=== PATIENT | female | born 1985 | race African-American/Black ===

== ENCOUNTER 2017-04-11 08:10 | Emergency (ER) | payer MEDICAID ==
[~2017-04-11] VITALS: Ht 162.6 cm; Wt 85.0 kg
[~2017-04-11 08:10] MED LIST: CHLO50 PO; RANI150 PO; REGL10TA5 PO
[2017-04-11 08:12] VITALS: BP 131/77; PULSE 87; RESP 16; TEMP 98.2; O2SAT 98
[2017-04-11] MEDS ORDERED: ZOFR4TAB3 SL (08:44)
[2017-04-11] MEDS ORDERED: LOMO2.5T PO (08:44)
[2017-04-11] MEDS ORDERED: DIPHENOXYLATE/ATROPINE 2.5 MG/0.025 MG TAB PO ONE (08:45)
[2017-04-11] MEDS ORDERED: ONDANSETRON ODT 4 MG TAB PO ONE (08:45)
--- NOTE | 2017-04-11 08:45 | PD ---
HPI Chief Complaint: GI Complaint Time Seen by Provider: 08:34 Travel History International Travel<30 days: No Contact w/Intl Traveler<30days: No Traveled to known affect area: No History of Present Illness HPI 31-year-old female arrives complaining of nausea vomiting and diarrhea for about 1 day. She woke up yesterday morning with watery diarrhea. She vomited once yesterday and twice last night. She describes a fluttering sensation and a crampy type pain in the upper abdomen/epigastrium and supraumbilical distribution. She denies fever. Last food prior to symptoms was steak and shake. Yesterday she was able to eat a submarine sandwich. Later that evening she ate chicken however vomited overnight. She reports a week ago successful treatment with Diflucan for a yeast infection. She denies urinary frequency/ dysuria. Emesis and diarrhea are nonbloody. PFSH Past Medical History Anemia: Yes Arthritis: No Asthma: No Autoimmune Disease: No Blood Disorders: Yes Anxiety: No Depression: No Heart Rhythm Problems: No Cancer: No Cardiovascular Problems: No High Cholesterol: No Chemotherapy: No Chest Pain: No Congestive Heart Failure: No COPD: No Cerebrovascular Accident: No Diabetes: No Diminished Hearing: No Endocrine: No Genitourinary: No Immune Disorder: No Kidney Stones: No Musculoskeletal: No Neurologic: No Psychiatric: No Reproductive: No Respiratory: No Immunizations Current: No Migraines: No Radiation Therapy: No Renal Failure: No Seizures: No Sickle Cell Disease: No Sleep Apnea: No Thyroid Disease: No ?: Not : 4 Para: 1 Miscarriage: 0 : 2 Past Surgical History Abdominal Surgery: No AICD: No Arteriovenous Shunt: No Cardiac Surgery: No Section: Yes (X 1) Ear Surgery: No Endocrine Surgery: No Eye Surgery: No Genitourinary Surgery: No Gynecologic Surgery: Yes ( ABOVE) Insulin Pump: No Joint Replacement: No Oral Surgery: No Pacemaker: No Thoracic Surgery: No Other Surgery: Yes Social History Alcohol Use: No Tobacco Use: No Substance Use: No Allergies-Medications (Allergen,Severity, Reaction): Coded Allergies: No Known Allergies (Verified , 04/11/17) Reported Meds & Prescriptions Reported Meds & Active Scripts Active Zantac 150 Mg Tab (Ranitidine HCl) 150 Mg Tab 150 Mg PO Q12 Thorazine 50 Mg Tab (Chlorpromazine Hcl) 50 Mg Tab 50 Mg PO Q8 PRN Reglan (Metoclopramide HCl) 10 Mg Tab 10 Mg PO TIDACHS Review of Systems Except as stated in HPI: all other systems reviewed are Neg General / Constitutional: No: Fever Gastrointestinal: Positive: Nausea, Vomiting, Diarrhea, Abdominal Pain Physical Exam Narrative GENERAL: 31 yo F, WNWD, NAD SKIN: Warm and dry. HEAD: Atraumatic. Normocephalic. EYES: Pupils equal and round. No scleral icterus. No injection or drainage. ENT: No nasal bleeding or discharge. Mucous membranes pink and moist. NECK: Trachea midline. No JVD. CARDIOVASCULAR: Regular rate and rhythm. RESPIRATORY: No accessory muscle use. Clear to auscultation. Breath sounds equal bilaterally. GASTROINTESTINAL: The abdomen is soft. There is no TTP or sign of acute abdominal pathology. MUSCULOSKELETAL: Extremities without clubbing, cyanosis, or edema. No obvious deformities. NEUROLOGICAL: Awake and alert. No obvious cranial nerve deficits. Motor grossly within normal limits. Five out of 5 muscle strength in the arms and legs. Normal speech. PSYCHIATRIC: Appropriate mood and affect; insight and judgment normal. Data Data Last Documented VS Vital Signs Date Time Temp Pulse Resp B/P Pulse Ox O2 Delivery O2 Flow Rate FiO2 04/11/17 08:12 98.2 87 16 131/77 98 VS reviewed MDM Medical Decision Making Medical Screen Exam Complete: Yes Emergency Medical Condition: Yes Medical Record Reviewed: Yes Differential Diagnosis Constipation, Gastritis, Acute Cholecystitis, Biliary Colic, Pancreatitis, ACEVEDO , Hepatitis, Bowel Obstruction, Cystitis, Mesenteric Ischemia, AAA, Appendicitis , Renal Stone/Hydronephrosis, GERD, perforated viscous Narrative Course Overall patient is well-appearing. Urine is negative. We'll send her home with Zofran and Lomotil. Return precautions discussed. Patient reassured. She is ready for discharge. Diagnosis Primary Impression: Nausea vomiting and diarrhea Referrals: Primary Care Physician 2 days Additional Instructions: You have a choice when it comes to health care, and we are glad that you chose [facility]. Hopefully, we have met your expectations on today's visit. You are welcome to return to [facility] at any time, as we are committed to meeting the health care needs of our community. Med/Other Pt SpecificInfo: Prescription(s) given Scripts Ondansetron Odt (Zofran Odt)4 Mg Tab4 Mg SL Q8HR PRN (Nausea/Vomiting) #10 TAB Ref 0 Prov:Jose Maria Bhandari MD 04/11/17 Diphenoxylate-Atropine (Lomotil)2.5-0.025 Mg Tab1 Tab PO Q6H PRN (DIARRHEA) #10 TAB Ref 0 Prov:Jose Maria Bhandari MD 04/11/17 Disposition: 01 DISCHARGE HOME Condition: Stable Jose Maria Bhandari MD Apr 11, 2017 08:45
== END 2017-04-11 09:29 | disposition home or self-care (01) ==
LOC: NEPC 08:10
DX: R11.2 Nausea with vomiting, unspecified (principal); R19.7 Diarrhea, unspecified; D64.9 Anemia, unspecified
CPT/HCPCS: 99284

== ENCOUNTER 2017-10-16 10:09 | Emergency (ER) | payer MEDICAID ==
[~2017-10-16] VITALS: Ht 165.1 cm; Wt 84.0 kg
[~2017-10-16 10:09] MED LIST changes: +LOMO2.5T PO; +ZOFR4TAB3 SL
[2017-10-16 10:13] VITALS: BP 137/89; PULSE 92; RESP 18; TEMP 98.7; O2SAT 99
[2017-10-16] MEDS ORDERED: SODIUM CHLOR 0.9% 1000 ML INJ 1,000 ML IV SCH (10:29)
[2017-10-16] MEDS ORDERED: ACETAMINOPHEN 325 MG TAB PO ONE (10:30)
[2017-10-16] MEDS ORDERED: ONDANSETRON HCL 4 MG/2 ML VIAL IVP ONE (10:30)
[2017-10-16] MEDS ORDERED: SODIUM CHLORIDE 0.9% FLUSH 10 ML FLUSH IV FLUSH PRN (10:30)
[2017-10-16] MEDS ORDERED: CEPH-460 PO (10:31)
--- NOTE | 2017-10-16 10:39 | PD ---
HPI Chief Complaint: Related Problem Time Seen by Provider: 10:20 Travel History International Travel<30 days: No Contact w/Intl Traveler<30days: No Traveled to known affect area: No History of Present Illness HPI 32-year-old female, approximately 7 weeks , presents to the emergency Department with complaint of continued nausea and vomiting since after being seen October 09 for a hospital in finding out she was at that time. This is her fifth and reports history of elective secondary to nausea and vomiting during . She has one living child. Reports headache. Denies fevers, abdominal pain, chest pain, shortness of breath. Denies vaginal discharge, leakage, bleeding. She is also being treated for urinary tract infection, which she states that she every time she takes the medication she vomits. Has prescription for Keflex. Has been taking Zofran as prescribed with minimal relief. Last Zofran at 5 AM this morning. Minimally relieved by Zofran. Aggravated by . Symptoms are moderate in severity. 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 Has an appointment on October 20. No known allergies. History of anemia. Has no other medical complaints. No other modifying factors or associated signs and symptoms. PFSH Past Medical History Anemia: Yes Arthritis: No Asthma: No Autoimmune Disease: No Blood Disorders: Yes Anxiety: No Depression: No Heart Rhythm Problems: No Cancer: No Cardiovascular Problems: No High Cholesterol: No Chemotherapy: No Chest Pain: No Congestive Heart Failure: No COPD: No Cerebrovascular Accident: No Diabetes: No Diminished Hearing: No Endocrine: No Genitourinary: No Immune Disorder: No Kidney Stones: No Musculoskeletal: No Neurologic: No Psychiatric: No Reproductive: No Respiratory: No Immunizations Current: No Migraines: No Radiation Therapy: No Renal Failure: No Seizures: No Sickle Cell Disease: No Sleep Apnea: No Thyroid Disease: No ?: LMP: 08/24/17 : 5 Para: 1 Miscarriage: 0 : 3 Past Surgical History Abdominal Surgery: No AICD: No Arteriovenous Shunt: No Cardiac Surgery: No Section: Yes (X 1) Ear Surgery: No Endocrine Surgery: No Eye Surgery: No Genitourinary Surgery: No Gynecologic Surgery: Yes ( ABOVE) Insulin Pump: No Joint Replacement: No Oral Surgery: No Pacemaker: No Thoracic Surgery: No Other Surgery: Yes (C.SECTION 2005.) Social History Alcohol Use: Yes (rarely ) Tobacco Use: No Substance Use: No Allergies-Medications (Allergen,Severity, Reaction): Coded Allergies: No Known Allergies (Verified Adverse Reaction, Unknown, 10/16/17) Reported Meds & Prescriptions Reported Meds & Active Scripts Active Zofran Odt (Ondansetron Odt) 4 Mg Tab 4 Mg SL Q8HR PRN Reported Keflex (Cephalexin) 500 Mg Cap 500 Mg PO Q8H Review of Systems Except as stated in HPI: all other systems reviewed are Neg Physical Exam Narrative GENERAL: Well-nourished, well-developed black female patient, in no acute distress; tearful SKIN: Warm and dry. HEAD: Atraumatic. Normocephalic. EYES: Pupils equal and round. No scleral icterus. No injection or drainage. ENT: Mucosa pink and moist. Airway patent. NECK: Trachea midline. CARDIOVASCULAR: Regular rate and rhythm. No murmur appreciated. RESPIRATORY: No accessory muscle use. Breath sounds clear and equal bilaterally. No retractions or tachypnea. GASTROINTESTINAL: Abdomen soft, non-tender, nondistended. Bowel sounds hyperactive 4 quadrants. Nonrigid. No guarding. MUSCULOSKELETAL: No obvious deformities. No clubbing. No cyanosis. No edema. NEUROLOGICAL: Awake and alert. Oriented 3. No obvious cranial nerve deficits. Motor grossly within normal limits. Normal speech. PSYCHIATRIC: Appropriate mood and affect; insight and judgment normal. Data Data Last Documented VS Vital Signs Date Time Temp Pulse Resp B/P (MAP) Pulse Ox O2 Delivery O2 Flow Rate FiO2 10/16/17 11:37 18 10/16/17 11:20 99 Room Air 10/16/17 10:13 98.7 92 Orders Orders Basic Metabolic Panel (Bmp) (10/16/17 10:29) Complete Blood Count With Diff (10/16/17 10:29) Urinalysis - C+S If Indicated (10/16/17 10:29) Iv Access Insert/Monitor (10/16/17 10:29) Ecg Monitoring (10/16/17 10:29) Oximetry (10/16/17 10:29) Ondansetron Inj (Zofran Inj) (10/16/17 10:30) Sodium Chlor 0.9% 1000 Ml Inj (Ns 1000 M (10/16/17 10:29) Sodium Chloride 0.9% Flush (Ns Flush) (10/16/17 10:30) Ed Urine Pregnancytest Poc (10/16/17 10:29) Acetaminophen (Tylenol) (10/16/17 10:30) Beta Hcg (Quant/Titer) (10/16/17 10:29) Urine Culture (10/16/17 10:44) Ceftriaxone Inj (Rocephin Inj) (10/16/17 11:30) Ed Discharge Order (10/16/17 11:37) Labs Laboratory Tests Test 10/16/17 10:44 White Blood Count 15.9 TH/MM3 Red Blood Count 5.42 MIL/MM3 Hemoglobin 11.0 GM/DL Hematocrit 33.2 % Mean Corpuscular Volume 61.3 FL Mean Corpuscular Hemoglobin 20.2 PG Mean Corpuscular Hemoglobin Concent 33.0 % Red Cell Distribution Width 16.2 % Platelet Count 262 TH/MM3 Mean Platelet Volume 10.4 FL Neutrophils (%) (Auto) 72.3 % Lymphocytes (%) (Auto) 19.2 % Monocytes (%) (Auto) 7.2 % Eosinophils (%) (Auto) 0.9 % Basophils (%) (Auto) 0.4 % Neutrophils # (Auto) 11.5 TH/MM3 Lymphocytes # (Auto) 3.1 TH/MM3 Monocytes # (Auto) 1.1 TH/MM3 Eosinophils # (Auto) 0.1 TH/MM3 Basophils # (Auto) 0.1 TH/MM3 CBC Comment DIFF FINAL Differential Comment Urine Color YELLOW Urine Turbidity CLEAR Urine pH 6.5 Urine Specific Sweeny 1.011 Urine Protein TRACE mg/dL Urine Glucose (UA) NEG mg/dL Urine Ketones 80 mg/dL Urine Occult Blood NEG Urine Nitrite NEG Urine Bilirubin NEG Urine Urobilinogen 2.0 MG/DL Urine Leukocyte Esterase SMALL Urine RBC 1 /hpf Urine WBC 9 /hpf Urine Squamous Epithelial Cells 1 /hpf Urine Transitional Epithelial Cells <1 /hpf Urine Mucus FEW /lpf Microscopic Urinalysis Comment CULTURE INDICATED Blood Urea Nitrogen 5 MG/DL Creatinine 0.62 MG/DL Random Glucose 83 MG/DL Calcium Level 9.1 MG/DL Sodium Level 135 MEQ/L Potassium Level 3.3 MEQ/L Chloride Level 103 MEQ/L Carbon Dioxide Level 20.4 MEQ/L Anion Gap 12 MEQ/L Estimat Glomerular Filtration Rate 136 ML/MIN Human Chorionic Gonadotropin, Quant 19328 MIU/ML [facility] Medical Decision Making Medical Screen Exam Complete: Yes Emergency Medical Condition: Yes Medical Record Reviewed: Yes Differential Diagnosis Hyperemesis gravidarum, nausea and vomiting during , medical clearance Narrative Course 32-year-old female, approximately 7 weeks , with nausea and vomiting. She was seen at [facility] in October 09 when she was diagnosed with and given Keflex for UTI and Zofran for nausea and vomiting. She has continued to have nausea and vomiting and cannot keep anything down. Denies fevers, abdominal pain, cramping. Denies vaginal discharge, leaking, bleeding. I discussed the patient with my attending physician, Dr. Leo, and he agrees with my plan of care. IV, normal saline bolus, Zofran, Tylenol, CBC, BMP , UPT, urinalysis, beta hCG ordered. 1126: WBC 15.8, otherwise CBC unremarkable. Sodium 135, potassium 3.3, otherwise BMP unremarkable. HCG 02209. Urinalysis with signs of infection; reflex to culture. 1 g Rocephin IV ordered. Patient has prescriptions for Keflex and Zofran. Instructed patient to follow up with reporter anchor; she has an appointment on October 20. Instructed patient to follow up with primary care provider. Patient verbalizes understanding and agreement with treatment plan. Patient is medically cleared and stable for discharge. Discussed reasons to return to the emergency department. Patient agrees with treatment plan. The patients vital signs are stable and the patient is stable for outpatient follow- up and treatment. Patient discharged home, stable and in no acute distress. Diagnosis Primary Impression: UTI (urinary tract infection) during Qualified Codes: O23.41 - Unspecified infection of urinary tract in , first trimester Additional Impression: Nausea and vomiting during Referrals: Research Laboratory Manager Primary Care Physician Patient Instructions: General Instructions, Nausea and Vomiting in ( ED), Urinary Tract Infection in (ED) Additional Instructions: Continue Keflex as prescribed Continue Zofran as directed and as needed for nausea/vomiting Follow-up with your reporter anchor at her next scheduled appointment Follow up with primary care provider Return to the emergency department immediately with worsening of symptoms Med/Other Pt SpecificInfo: No Change to Meds, No Meds Exist/No RX given Disposition: DISCHARGE HOME Condition: Stable Rosamaria Emmanuel Oct 16, 2017 10:39
[2017-10-16 10:56] LABS: AUTOMATED NEUTROPHIL # 11.5 TH/MM3 (1.8-7.7); BASOPHIL # 0.1 TH/MM3 (0-0.2); BASOPHIL % 0.4 % (0.0-2.0); EOSINOPHIL # 0.1 TH/MM3 (0-0.4); EOSINOPHIL % 0.9 % (0.0-4.0); HEMATOCRIT 33.2 % (35.0-46.0); LYMPH % 19.2 % (9.0-44.0); LYMPHOCYTE # 3.1 TH/MM3 (1.0-4.8); MEAN CELL VOLUME 61.3 FL (80.0-100.0); MEAN CORPUSCULAR HEMOGLOBIN 20.2 PG (27.0-34.0); MEAN PLATELET VOLUME 10.4 FL (7.0-11.0); MONO % 7.2 % (0.0-8.0); MONOCYTE # 1.1 TH/MM3 (0-0.9); NEUT % 72.3 % (16.0-70.0); PLATELET COUNT 262 TH/MM3 (150-450); RED BLOOD COUNT 5.42 MIL/MM3 (4.00-5.30); RED CELL DISTRIBUTION WIDTH 16.2 % (11.6-17.2); WHITE BLOOD COUNT 15.9 TH/MM3 (4.0-11.0)
[2017-10-16 11:06] LABS: BILIRUBIN, URINE NEG (NEG); BLOOD, URINE NEG (NEG); GLUCOSE,URINE NEG (NEG); KETONE, URINE 80 mg/dL (NEG); MUCUS URINE FEW /lpf (OCC); NITRITE,URINE NEG (NEG); PH, URINE 6.5 (5.0-8.5); SQUAMOUS EPITHELIAL CELL URINE 1 /hpf (0-5); TRANSITIONAL EPI CELLS, URINE <1 /hpf; URINE COLOR YELLOW (YELLW/STRAW); URINE LEUKOCYTE ESTERASE SMALL (NEG)
[2017-10-16 11:10] LABS: BICARBONATE 20.4 MEQ/L (21.0-32.0); CALCIUM 9.1 MG/DL (8.5-10.1); CREATININE 0.62 MG/DL (0.50-1.00)
[2017-10-16 11:20] VITALS: O2SAT 99
[2017-10-16] MEDS ORDERED: cefTRIAXone INJ 1,000 MG in SODIUM CHLORIDE 0.9% INJ 100 ML IV ONE (11:30)
[2017-10-16 11:37] VITALS: RESP 18
== END 2017-10-16 12:29 | disposition home or self-care (01) ==
LOC: NEPD 10:09
DX: O23.41 Unspecified infection of urinary tract in pregnancy, first trimester (principal); O21.9 Vomiting of pregnancy, unspecified; R51 Headache; O99.011 Anemia complicating pregnancy, first trimester; Z3A.01 Less than 8 weeks gestation of pregnancy; Z34.91 Encounter for supervision of normal pregnancy, unspecified, first trimester
CPT/HCPCS: 80048; 81001; 84702; 84703; 85025; 87086; 96361; 96374; 96375; 99284; J0696; J2405; J7030

== ENCOUNTER 2017-12-16 18:58 | Emergency (ER) | payer MEDICAID ==
[~2017-12-16 18:58] MED LIST changes: +CEPH-460 PO; -CHLO50 PO; -LOMO2.5T PO; -RANI150 PO; -REGL10TA5 PO
--- NOTE | 2017-12-16 20:16 | PD ---
HPI Chief Complaint fall Date Seen: Dec 16, 2017 Time Seen: 20:11 Travel History International Travel<30 Days: No Contact w/Intl Traveler<30Days: No Known Affected Area: No History of Present Illness HPI pt. is a 32 y/o @ 16 weeks present s/p fall. pt. states lost ballance and fell down 3 steps. pt. states she fell on hr buttocks. pt. states has been having intermittent ctxs since. +FM, no lof/vb. Weeks Gestation: 16 Para: 1 : 5 History Past Medical History Medical History: Denies Significant Hx Past Surgical History Surgical History: No Previous Surgery Family History Family History: Negative Social History Alcohol Use: No Tobacco Use: No Substance Abuse: No Allergies-Medications (Allergen,Severity, Reaction): Coded Allergies: No Known Allergies (Verified Adverse Reaction, Unknown, 10/16/17) Home Meds Active Scripts Ondansetron Odt (Zofran Odt) 4 Mg Tab, 4 MG SL Q8HR Y for Nausea/Vomiting, #10 TAB 0 Refills Prov:Jose Maria Bhandari MD 04/11/17 Reported Medications Cephalexin (Keflex) 500 Mg Cap, 500 MG PO Q8H for Infection, #30 CAP 0 Refills 10/16/17 Review of Systems Except as stated in HPI: all other systems reviewed are Neg Physical Exam Narrative GENERAL: Well-nourished, well-developed patient. SKIN: Warm and dry. HEAD: Normocephalic and atraumatic. EYES: No scleral icterus. No injection or drainage. ENT: No nasal drainage noted. Mucous membranes pink. Airway patent. NECK: Supple, trachea midline. No JVD. CARDIOVASCULAR: Regular rate and rhythm without murmurs, gallops, or rubs. RESPIRATORY: Breath sounds equal bilaterally. No accessory muscle use. ABDOMEN/GI: Abdomen soft, non-tender, bowel sounds present, no rebound, no guarding Gravid FHT's: + EXTREMITIES: No cyanosis or edema. BACK: Nontender without obvious deformity. No CVA tenderness. NEUROLOGICAL: Awake and alert. Motor and sensory grossly within normal limits. Five out of 5 muscle strength in all muscle groups. Normal speech. Data Data Vital Signs Reviewed: Yes [facility] Medical Record Reviewed: Yes Plan pt. to be d/c to home. fall and precautions d/w pt. all ? answered. pt. given precautions for return. all ? answered. f/u as sched. Diagnosis Diagnosis: Primary Impression: Fall (on) (from) unspecified stairs and steps, initial encounter Additional Impression: 16 weeks gestation of Disposition: 01 DISCHARGE HOME Condition: Stable Patient Instructions: General Instructions, Labor (ED), Movement (ED) Departure Forms: Tests/Procedures Rafiq Ulloa Jr., MD Dec 16, 2017 20:16
== END 2017-12-16 20:49 | disposition home or self-care (01) ==
LOC: HOBED 18:58
DX: O9A.212 Injury, poisoning and certain other consequences of external causes complicating pregnancy, second trimester (principal)
CPT/HCPCS: 99281